=== PATIENT | male | born 1965 | race Caucasian/White ===

== ENCOUNTER 2017-01-09 09:42 | Emergency (ER) | payer MEDICAID ==
--- NOTE | 2017-01-09 11:23 | ED Physician Documentation ---
PD HPI HEENT - Stated complaint Stated Complaint: CONGESTION/THROAT PX - Chief complaint Chief Complaint: Heent - History obtained from History obtained from: Patient - History of Present Illness Timing - details: Still present Location: Sinuses, Throat Associated symptoms: Fever, Congestion, Cough Similar symptoms before: Diagnosis (Reports history of similar symptoms in the past with sinusitis.) - Additional information Additional information: The patient is a 51-year-old male who presents with sore throat and sinus congestion of 2-1/2 weeks duration.. Favio associated fever, headache, and productive cough. He has history of similar symptoms in the past with sinusitis. He does not smoke cigarettes. Review of Systems Constitutional: reports: Fever Eyes: denies: Discharge Ears: denies: Ear pain Nose: reports: Congestion, Sinus pressure / pain Throat: reports: Sore throat Cardiac: denies: Chest pain / pressure Respiratory: reports: Cough. denies: Dyspnea GI: denies: Abdominal Pain, Nausea, Vomiting : denies: Dysuria Skin: denies: Rash Musculoskeletal: denies: Back pain, Extremity pain Neurologic: reports: Headache. denies: Focal weakness, Numbness PD PAST MEDICAL HISTORY - Past Medical History Past Medical History: No Cardiovascular: None Respiratory: None Neuro: None Endocrine/Autoimmune: Type 2 diabetes - Past Surgical History Past Surgical History: No - Present Medications Home Medications: Ambulatory Orders Medication Instructions Recorded Confirmed Azithromycin [Zithromax] 250 mg PO DAILY #6 tablet 01/09/17 Fexofenadine HCl [Gayathri Allergy] 60 mg PO DAILY 01/09/17 01/09/17 Oxymetazoline HCl [Afrin] 15 ml NS BID #1 mist 01/09/17 - Allergies Allergies/Adverse Reactions: Allergies Allergy/AdvReac Type Severity Reaction Status Date / Time No Known Drug Allergies Allergy Verified 02/11/16 02:04 - Social History Does the pt smoke?: No Smoking Status: Never smoker Does the pt drink ETOH?: No Does the pt have substance abuse?: No - Immunizations Immunizations are current?: Yes - POLST Patient has POLST: No PD ED PE NORMAL - Vitals Vital signs reviewed: Yes (normal) - General General: Alert and oriented X 3, Well developed/nourished - HEENT HEENT: Atraumatic, EOMI, Ears normal, Moist mucous membranes, Pharynx benign, Other (Tenderness to percussion over the maxillary sinuses.) - Neck Neck: Supple, no meningeal sign, No adenopathy - Cardiac Cardiac: RRR, No murmur - Respiratory Respiratory: No respiratory distress, Clear bilaterally - Abdomen Abdomen: Soft, Non tender - Back Back: No CVA TTP - Derm Derm: No rash - Extremities Extremities: No edema, No calf tenderness / cord - Neuro Neuro: Alert and oriented X 3, No motor deficit, Normal speech Results - Vitals Vitals: Oxygen O2 Source Room air PD MEDICAL DECISION MAKING - ED course Complexity details: considered differential, d/w patient ED course: The patient's presentation is most consistent with sinusitis. His presentation does not suggest meningitis, peritonsillar abscess, or pneumonia. I discussed with him that most cases of sinusitis are caused by viruses, and that antibiotics are not particularly useful. He listened attentively, but was unconvinced. I subsequently agreed to prescribe antibiotic therapy, but asked that he not take the medication unless his symptoms persist without improvement for another 5 days. He is being discharged with prescriptions for Zithromax and for Afrin nasal spray. I discussed with him outpatient follow-up, as well as potentially worrisome signs or symptoms that should prompt reevaluation in the emergency department. Departure - Departure Disposition: 01 Home, Self Care Clinical Impression: Sinusitis Qualifiers: Sinusitis location: unspecified location Chronicity: acute Recurrence: recurrent Qualified Code(s): J01.91 - Acute recurrent sinusitis, unspecified Condition: Stable Instructions: ED Sinusitis Abx Tx Follow-Up: Doctor, Your [Other] Prescriptions: Azithromycin [Zithromax] 250 mg PO DAILY #6 tablet Oxymetazoline HCl [Afrin] 15 ml NS BID #1 mist Comments: Continue using Tylenol or ibuprofen as needed for fever or discomfort. You can use Afrin nasal spray twice daily as prescribed. You can use Zithromax daily as prescribed. Follow up with your primary physician within 2 weeks if not completely resolved. Return to the emergency department if you develop increasing difficulty swallowing, increasing shortness of breath, or otherwise worsening symptoms. Discharge Date/Time: 01/09/17 11:27
[2017-01-09 11:29] VITALS: BP 105/68
== END 2017-01-09 11:27 | disposition home or self-care (01) ==
LOC: ED 09:42
DX: J01.91 Acute recurrent sinusitis, unspecified (principal)
CPT/HCPCS: 99283